=== PATIENT | male | born 1940 | race Caucasian/White ===

== ENCOUNTER → 2025-01-03 | Outpatient (CLI) | payer MEDICARE, MEDICAID, SELFPAY ==
[2025-01-03 09:36] LABS: Basophils # (Auto) 0.1 Thou/mm3 (0.0-0.2); Basophils % (Auto) 2 % (0-2.5); Eosinophils # (Auto) 0.3 Thou/mm3 (0.0-0.5); Eosinophils % (Auto) 6 % (0-10); Hematocrit 42.0 % (41.0-53.0); Hemoglobin 13.5 g/dL (13.5-16.0); Immature Granulocytes Auto 0.01 Thou/mm3 (0.00-0.00); Lymphocytes # (Auto) 2.1 Thou/mm3 (1.0-4.8); Lymphocytes % (Auto) 39 % (10-50); Mean Corpuscular HGB Conc 32.1 g/dl (31.0-37.0); Mean Corpuscular Hemoglobin 27.0 pg (25.0-35.0); Mean Corpuscular Volume 84 fL (80-100); Monocytes # (Auto) 0.6 Thou/mm3 (0.0-0.8); Monocytes % (Auto) 12 % (0-12); Neutrophils # (Auto) 2.2 Thou/mm3 (1.8-7.7); Neutrophils % (Auto) 41 % (37-80); Nucleated Red Blood Cell # 0.00 Thou/mm3 (0.00-0.00); Nucleated Red Blood Cell % 0 /100 WBC (0); Platelet Count 235 Thou/mm3 (140-440); RDW Standard Deviation 48.7 fL (35.1-43.9); Red Blood Count 5.00 Miln/mm3 (4.50-5.90); White Blood Count 5.3 Thou/mm3 (3.8-10.6)
[2025-01-03 09:40] LABS: Glucose Estimated Average 126 mg/dL (80-131); Hemoglobin A1C 6.0 % Hgb (4.8-6.0)
[2025-01-03 09:47] LABS: Vitamin D 25 Hydroxy Total 41.7 ng/mL (7.3-40.2)
[2025-01-03 09:51] LABS: Alanine Aminotransferase 12 U/L (10-49); Albumin, Serum 4.0 gm/dL (3.4-4.8); Albumin/Globulin Ratio 1.7 (1.2-2.2); Alkaline Phosphatase 70 U/L (46-116); Anion Gap 9 (7-16); Aspartate Amino Transferase 22 U/L (0-34); BUN/Creatinine Ratio 11 Ratio (12-20); Bilirubin,Total 0.4 mg/dL (0.3-1.2); Blood Urea Nitrogen 15 mg/dL (9-23); Calcium 9.7 mg/dL (8.3-10.6); Calcium (Corrected) 9.7 mg/dL (8.5-10.1); Carbon Dioxide 28.5 mMol/L (20.0-31.0); Cardiac Risk Estimate 3.6 RATIO (4.0-6.7); Chloride 106 mMol/L (98-107); Cholesterol 211 mg/dL (132-200); Creatinine (Component) 1.4 mg/dL (0.6-1.3); Free T4 (Free Thyroxine) 1.18 ng/dL (0.89-1.76); Globulin 2.3 gm/dL (2.3-3.5); Glucose 118 mg/dL (74-106); HDL Cholesterol 58 mg/dL (40-60); LDL Cholesterol,Calculated 138 mg/dL (0-130); Osmolality,Calculated 286 (275-295); Potassium 4.6 mMol/L (3.4-5.1); Sodium 143 mMol/L (136-145); Thyroid Stimulating Hormone 2.75 uIU/mL (0.55-4.78); Total Protein 6.3 gm/dL (5.7-8.2); Triglycerides 76 mg/dL (30-150); eGFR 50 See Note
== END | disposition home or self-care (01) ==
LOC: COPL 08:06
PROVIDERS: PCP Internal Medicine; Referring Provider Internal Medicine; Visit Provider Internal Medicine
DX: Z00.00 Encounter for general adult medical examination without abnormal findings (principal); I11.0 Hypertensive heart disease with heart failure; E55.9 Vitamin D deficiency, unspecified
CPT/HCPCS: 36415; 80053; 80061; 82306; 83036; 84439; 84443; 85025

== ENCOUNTER → 2025-04-01 | Outpatient (CLI) | payer MEDICARE, MEDICAID, SELFPAY ==
--- NOTE | 2025-04-01 16:20 | XR_ITS ---
Examination: Left hip AP, lateral, AP pelvis 3 views Technique: Hip AP lateral, AP pelvis, 3 views Exam date and time: April 01, 2025, 1708 hours INDICATIONS: Left hip pain several days. FINDINGS: Moderate bilateral hip osteoarthritis No left hip fracture or dislocation Right hip bones of the pelvis intact IMPRESSION: Moderate bilateral hip osteoarthritis.
--- NOTE | 2025-04-01 16:20 | XR_ITS ---
EXAMINATION: Sacrum and coccyx 3 views TECHNIQUE: AP lateral: Lateral sacrum and coccyx 3 views Date and time: April 01, 2025, 1718 hours INDICATIONS: Sacral pain several days. FINDINGS: Advanced degenerative disc disease L3-L4, L4-L5 Please see the CT lumbar spine report for description of calcified infrarenal abdominal aortic aneurysm No sacrococcygeal fracture IMPRESSION: No sacrococcygeal fracture
--- NOTE | 2025-04-01 16:20 | XR_ITS ---
Examination: Lumbar spine, 5 views Technique: Lumbar spine AP, lateral, coned lateral lower lumbar spine, bilateral obliques 5 views Exam date and time: April 01, 2025, 1706 hours INDICATIONS: Low back pain several days FINDINGS: Abundant stool throughout the colon Lumbar dextroscoliosis 18 degrees Moderate bilateral hip osteoarthritis Diffuse prominent facet arthropathy AP dimension calcified infrarenal abdominal aorta 7.5 cm Moderate to advanced diffuse lumbar degenerative disc disease IMPRESSION: Moderate to advanced lumbar degenerative disc disease 7.5 cm calcified infrarenal abdominal aortic aneurysm, recommend CTA abdomen/pelvis post intravenous contrast follow-up
== END | disposition home or self-care (01) ==
PROVIDERS: PCP Internal Medicine; Referring Provider Internal Medicine; Visit Provider Internal Medicine
DX: M51.360 Other intervertebral disc degeneration, lumbar region with discogenic back pain only (principal); I71.43 Infrarenal abdominal aortic aneurysm, without rupture; M16.0 Bilateral primary osteoarthritis of hip
CPT/HCPCS: 72110; 72220; 73502

== ENCOUNTER → 2025-05-15 | Outpatient (CLI) | payer MEDICARE, MEDICAID, SELFPAY ==
--- NOTE | 2025-05-15 | XR_ITS ---
EXAMINATION: Ultrasound abdominal aorta TECHNIQUE: Grayscale sonographic images abdominal aorta Date and time: May 15, 2025, 1118 hours INDICATIONS: Smoking history 50 years epigastric pain for months. FINDINGS: Transverse dimension proximal aorta 2.3 x 2.2 cm, mid aorta 5.5 x 5.2 cm Distal aorta 2.1 x 1.6 cm Right iliac 1.2 cm left iliac 1.1 cm IMPRESSION: Positive for abdominal aortic aneurysm transverse dimension 5.5 x 5.2 cm Consider CTA abdomen pelvis post intravenous contrast follow-up
== END | disposition home or self-care (01) ==
LOC: CDIM 11:04
PROVIDERS: PCP Internal Medicine; Referring Provider Internal Medicine; Visit Provider Internal Medicine
DX: I71.40 Abdominal aortic aneurysm, without rupture, unspecified (principal)
CPT/HCPCS: 76770